=== PATIENT | female | born 1960 | race Caucasian/White ===

== ENCOUNTER 2020-09-25 17:05 | Inpatient (IN) | payer OTHER ==
[~2020-09-25] VITALS: Ht 170.2 cm; Wt 134.6 kg
[2020-09-25 17:54] LABS: HEMOGLOBIN 15.8 gm/dl (12.3-15.3); WHITE BLOOD COUNT 17.1 K/UL (4.5-11.0)
[2020-09-25 18:36] LABS: BUN/CREATININE RATIO 18 (0-10)
[2020-09-25] MEDS ORDERED: FUROSEMIDE20 MG PO (22:02)
[2020-09-25] MEDS ORDERED: DOK100 M1 PO (22:03)
[2020-09-25] MEDS ORDERED: ATENOLOL25 MG PO (22:03)
[2020-09-25] MEDS ORDERED: CELEXA20 MG PO (22:03)
[2020-09-25] MEDS ORDERED: ZESTRIL 40 MG T40 MG PO (22:04)
[2020-09-25] MEDS ORDERED: CLARITIN10 MG PO (22:04)
[2020-09-25] MEDS ORDERED: GLUCOPHAGE850 MG PO (22:05)
[2020-09-25] MEDS ORDERED: FISH OIL 1,0001 EAC1 PO (22:05)
[2020-09-25] MEDS ORDERED: LANTUS INS100 UTS/M2 SC (22:06)
[2020-09-25] MEDS ORDERED: DIFLUCAN150 MG PO (22:06)
[2020-09-26 03:11] LABS: HEMOGLOBIN 13.2 gm/dl (12.3-15.3); RED BLOOD COUNT 4.25 M/UL (4.00-5.10); WHITE BLOOD COUNT 21.7 K/UL (4.5-11.0)
[2020-09-27 00:57] LABS: ACINETOBACTER BAUMANNII Not Detected (Negative); CANDIDA ALBICANS Not Detected (Negative); CANDIDA KRUSEI Not Detected (Negative); CANDIDA TROPICALIS Not Detected (Negative); ENTEROCOCCUS Not Detected (Negative); ESCHERICHIA COLI Not Detected (Negative); HAEMOPHILUS INFLUENZAE Not Detected (Negative); KLEBSIELLA OXYTOCA Not Detected (Negative); KLEBSIELLA PNEUMONIAE Not Detected (Negative); KPC-CARBAPENEM-RESISTANCE GENE Not Detected (Negative); PROTEUS Not Detected (Negative); PSEUDOMONAS AERUGINOSA Not Detected (Negative); SERRATIA MARCESANS Not Detected (Negative); STREP AGALACTIAE (GROUP B) Not Detected (Negative); STREP PYOGENES (GROUP A) Not Detected (Negative); STREPTOCOCCUS Not Detected (Negative); vanA/B (VANCOMYCIN RESIST GENE Not Detected (Negative)
[2020-09-27 02:23] LABS: STAPHYLOCOCCUS DETECTED (Negative); STAPHYLOCOCCUS AUREUS DETECTED (Negative); mecA (METHICILLIN RESIST GENE DETECTED (Negative)
[2020-09-27 05:27] LABS: HEMOGLOBIN 11.9 gm/dl (12.3-15.3); RED BLOOD COUNT 3.94 M/UL (4.00-5.10); WHITE BLOOD COUNT 13.9 K/UL (4.5-11.0)
[2020-09-28 05:59] LABS: HEMOGLOBIN 12.2 gm/dl (12.3-15.3); RED BLOOD COUNT 4.17 M/UL (4.00-5.10); WHITE BLOOD COUNT 13.2 K/UL (4.5-11.0)
[2020-09-28 06:06] LABS: BUN/CREATININE RATIO 20 (0-10)
[2020-09-29 03:24] LABS: HEMOGLOBIN 12.1 gm/dl (12.3-15.3); RED BLOOD COUNT 3.98 M/UL (4.00-5.10); WHITE BLOOD COUNT 13.1 K/UL (4.5-11.0)
[2020-09-29 03:37] LABS: BUN/CREATININE RATIO 17 (0-10)
[2020-09-30 19:40] LABS: HEMOGLOBIN 12.6 gm/dl (12.3-15.3); RED BLOOD COUNT 4.06 M/UL (4.00-5.10)
[2020-09-30 20:05] LABS: WHITE BLOOD COUNT 21.2 K/UL (4.5-11.0)
[2020-10-01 06:01] LABS: HEMOGLOBIN 12.7 gm/dl (12.3-15.3); RED BLOOD COUNT 4.06 M/UL (4.00-5.10); WHITE BLOOD COUNT 24.9 K/UL (4.5-11.0)
[2020-10-02 08:38] LABS: HEMOGLOBIN 12.1 gm/dl (12.3-15.3); RED BLOOD COUNT 3.92 M/UL (4.00-5.10)
[2020-10-03 06:46] LABS: HEMOGLOBIN 10.8 gm/dl (12.3-15.3); WHITE BLOOD COUNT 12.1 K/UL (4.5-11.0)
[2020-10-03 06:49] LABS: RED BLOOD COUNT 3.51 M/UL (4.00-5.10)
[2020-10-03 07:11] LABS: BUN/CREATININE RATIO 19 (0-10)
--- NOTE | 2020-10-03 14:03 | NUR ---
GROSS CATH INSERT PER MD ORDERS. PT TOLERATED WELL
--- NOTE | 2020-10-03 14:31 | NUR ---
PT HAD LARGE AMOUNT OF URINARY OUTPUT VIA GROSS CATHETHER EMPTIED 1991
[2020-10-05 05:29] LABS: BUN/CREATININE RATIO 19 (0-10)
--- NOTE | 2020-10-05 05:32 | NUR ---
NOTIFIED THAT BLOOD CULTURES CAME BACK POSITIVE FOR GRAM POSITIVE COCCI IN CLUSTERS. PT ALREADY RECIEVING ZOSYN AND VANCOMYCIN. RECIEVED NO NEW ORDERS. WILL CONTINUE TO MONITOR.
[2020-10-05 09:25] LABS: HEMOGLOBIN 10.6 gm/dl (12.3-15.3); RED BLOOD COUNT 3.49 M/UL (4.00-5.10); WHITE BLOOD COUNT 9.7 K/UL (4.5-11.0)
[2020-10-06 04:42] LABS: BUN/CREATININE RATIO 16 (0-10)
[2020-10-06 04:57] LABS: HEMOGLOBIN 10.8 gm/dl (12.3-15.3); RED BLOOD COUNT 3.58 M/UL (4.00-5.10); WHITE BLOOD COUNT 10.3 K/UL (4.5-11.0)
[2020-10-07 05:57] LABS: HEMOGLOBIN 11.3 gm/dl (12.3-15.3); RED BLOOD COUNT 3.73 M/UL (4.00-5.10); WHITE BLOOD COUNT 11.8 K/UL (4.5-11.0)
[2020-10-07 06:14] LABS: BUN/CREATININE RATIO 17 (0-10)
[2020-10-08 04:59] LABS: HEMOGLOBIN 11.2 gm/dl (12.3-15.3); RED BLOOD COUNT 3.69 M/UL (4.00-5.10); WHITE BLOOD COUNT 11.6 K/UL (4.5-11.0)
[2020-10-08 05:26] LABS: BUN/CREATININE RATIO 15 (0-10)
[2020-10-08] MEDS ORDERED: ZYVOX600 MG PO (15:07)
[2020-10-08] MEDS ORDERED: LOTRIMIN CREAM15 GM TOP (15:07)
[2020-10-08] MEDS ORDERED: NOVOLOG MI100 UNIT/1 SC (15:07)
[2020-10-08] MEDS ORDERED: NICOTINE PATCH1 EAC1 TD (15:38)
== END 2020-10-08 18:56 | disposition home health service (06) | DRG 871 ==
LOC: ER1 17:05 → MED SURG 4 19:23 → CDU 19:23 → CCU 22:22 → MED SURG 4 09-27 03:17
PROVIDERS: Internal Medicine; Internal Medicine Nephrology; Preventive Medicine Occupational Medicine; ADMIT Internal Medicine Infectious Disease
DX: A41.02 Sepsis due to Methicillin resistant Staphylococcus aureus (principal); N17.0 Acute kidney failure with tubular necrosis; E11.00 Type 2 diabetes mellitus with hyperosmolarity without nonketotic hyperglycemic-hyperosmolar coma (NKHHC); G93.41 Metabolic encephalopathy; E72.51 Non-ketotic hyperglycinemia; L03.313 Cellulitis of chest wall; Z68.42 Body mass index [BMI] 45.0-49.9, adult; N13.30 Unspecified hydronephrosis; Z20.822 Contact with and (suspected) exposure to COVID-19; K42.9 Umbilical hernia without obstruction or gangrene; E11.42 Type 2 diabetes mellitus with diabetic polyneuropathy; G89.29 Other chronic pain; E78.5 Hyperlipidemia, unspecified; F32.9 Major depressive disorder, single episode, unspecified; F41.9 Anxiety disorder, unspecified; B37.2 Candidiasis of skin and nail; E66.01 Morbid (severe) obesity due to excess calories; L89.152 Pressure ulcer of sacral region, stage 2; E86.0 Dehydration; E78.00 Pure hypercholesterolemia, unspecified; H40.9 Unspecified glaucoma; E87.5 Hyperkalemia; R33.9 Retention of urine, unspecified; I10 Essential (primary) hypertension; R53.81 Other malaise; Z91.14 Patient's other noncompliance with medication regimen; Z79.4 Long term (current) use of insulin; Z98.42 Cataract extraction status, left eye; Z98.41 Cataract extraction status, right eye; Z83.3 Family history of diabetes mellitus; Z80.9 Family history of malignant neoplasm, unspecified; Z82.49 Family history of ischemic heart disease and other diseases of the circulatory system; Z87.891 Personal history of nicotine dependence; Z71.6 Tobacco abuse counseling
CPT/HCPCS: ECHO; 0240U; 36415; 36600; 70450; 71045; 73080; 80048; 80053; 80076; 80202; 80307; 81001; 82009; 82140; 82150; 82308; 82550; 82553; 82803; 82962; 83036; 83605; 83690; 83735; 83874; 83880; 84100; 84133; 84300; 84443; 84484; 85025; 85027; 85652; 86140; 87040; 87077; 87086; 87150; 87186; 89050; 93005; 93306; 96374; 96375; 97110; 97110-GP-CQ; 97116; 97116-GP-CQ; 97161; 97530; 97530-GP-CQ; 99285; A6212; C9113; G0480; J0696; J1650; J1940; J2060; J2270; J2310; J2405; J2543; J3370; J7030; J7070; P9047